=== PATIENT | female | born 1930 | race Caucasian/White ===

== ENCOUNTER 2017-09-02 02:05 | Emergency (ER) | payer MEDICARE, BC ==
[2017-09-02 02:49] LABS: MCH 32.8 pg (25.0-35.0); MCHC 32.5 g/dL (31.0-37.0); Macrocytosis Slight; Neutrophils % (A) 77 %
[2017-09-02 02:52] LABS: Basophils # (A) 0.1 k/uL (0-0.2); Basophils % (A) 0 %; Eosinophils # (A) 0.2 k/uL (0-0.7); Eosinophils % (A) 2 %; HGB 12.3 gm/dL (11.4-16.0); Lymphocytes # (A) 1.9 k/uL (1.0-4.8); Lymphocytes % (A) 15 %; MCV 100.9 fL (80.0-100.0); Mean Platelet Volume 7.2; Monocytes # (A) 0.7 k/uL (0-1.0); Monocytes % (A) 5 %; Neutrophils # (A) 10.2 k/uL (1.3-7.7); RBC 3.77 m/uL (3.80-5.40); RDW 13.9 % (11.5-15.5); WBC 13.3 k/uL (3.8-10.6)
[2017-09-02 02:59] LABS: Calcium 9.2 mg/dL (8.4-10.2); Magnesium 2.1 mg/dL (1.6-2.3); Potassium 4.4 mmol/L (3.5-5.1)
[2017-09-02 03:05] LABS: Platelet Count 99 k/uL (150-450)
[2017-09-02 03:09] LABS: Creatine Kinase 321 U/L (30-135)
[2017-09-02 03:22] LABS: Troponin I <0.012 ng/mL (0.000-0.034)
[2017-09-02 03:25] LABS: Creatine Kinase MB 5.1 ng/mL (0.0-2.4)
--- NOTE | 2017-09-02 03:26 | CT ---
EXAMINATION TYPE: CT facial bones wo con DATE OF EXAM: 09/02/2017 COMPARISON: NONE HISTORY: fall CT DLP: 1964.10 mGycm Automated exposure control for dose reduction was used. TECHNIQUE: CT scan of the sinuses is performed without contrast, axial images are obtained, coronal r eformatted images are also reviewed. FINDINGS: There is extensive soft tissue swelling anterior to the right orbit or there is also extens kirsty soft tissue swelling lateral to the right side of the face. The zygomatic arches are intact. I se e no orbital fracture. There is significant preseptal soft tissue swelling in the right orbital regio n. There is soft tissue swelling on the right side of the nose. Nasal bone appears intact. There is n o evidence of blowout fracture. There is fairly normal aeration of the paranasal sinuses. The maxilla is intact. The mandibular ring appears intact. IMPRESSION: Significant right-sided soft tissue swelling as above. This measures up to 3 cm in thickness and cons istent with subcutaneous hemorrhage. No fracture seen. IMPRESSION: The sinuses are clear and the ostiomeatal complex is patent bilaterally.
--- NOTE | 2017-09-02 03:33 | CT ---
EXAMINATION TYPE: CT brain george farias DATE OF EXAM: 09/02/2017 COMPARISON: NONE HISTORY: fall CT DLP: 1964.10 mGycm Automated exposure control for dose reduction was used. TECHNIQUE: CT scan of the head and cervical spine are performed without contrast. FINDINGS: There is cerebral cortical atrophy. There is no mass effect nor midline shift. There is e xtensive scalp soft tissue swelling on the right side. This measures up to 2.5 cm. There is small intracranial hemorrhage on the left side that measures 27 x 6 mm. This appears to be e pidural on the left lateral temporal bone. There is also extension inferiorly. Hemorrhage measures 4 cm in length in the superior inferior dimension. I see no skull fracture. Cervical vertebra have fairly normal alignment. There is narrowing of disc spaces from C4 to C7 with spurring of the endplates. Facet joints are intact. I see no bony destructive process. The skull base is intact. IMPRESSION: Extensive right-sided soft tissue swelling of the skull and face. Small epidural hemorrhage in the left temporal region. No mass effect. No evidence of parenchymal hem orrhage. Cerebral atrophy. Spondylotic changes in the cervical spine. No fracture. This exam was discussed with ER physician at 3:30 AM.
[2017-09-02] MEDS ORDERED: MORPHINE SULFATE 4 MG/ML SYRINGE IV STA ×2 (03:59→04:48)
--- NOTE | 2017-09-02 03:59 | ED ---
Fall HPI - General Chief Complaint: Fall Stated Complaint: fall Time Seen by Provider: 09/02/17 02:29 Source: patient, EMS Mode of arrival: EMS - History of Present Illness Initial Comments: This patient is an 87-year-old woman who presents to be evaluated after she had a fall this morning. The patient reports she had gotten up to use the bathroom , and then believes that she was moving too quickly. She became dizzy and fell , striking her head on the entry way to the bathroom. Patient does not believe that she lost consciousness, but not sure she was dazed. Now she complains of having headache to the right side of the head. She describes as burning, constant, moderate intensity. 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 ROS Other: All systems not noted in ROS Statement are negative. Constitutional: Denies: fever, chills, weakness Eyes: Denies: vision change ENT: Denies: epistaxis Respiratory: Denies: cough, dyspnea Cardiovascular: Denies: chest pain, palpitations Gastrointestinal: Denies: abdominal pain, vomiting, diarrhea Musculoskeletal: Denies: back pain Neurological: Reports: headache. Denies: weakness, numbness, paresthesias, confusion Hematological/Lymphatic: Denies: easy bleeding Past Medical History Past Medical History: Asthma, COPD, Hypertension, Thyroid Disorder History of Any Multi-Drug Resistant Organisms: None Reported Past Surgical History: Orthopedic Surgery, Tonsillectomy Additional Past Surgical History / Comment(s): aortic anuerysm Past Psychological History: No Psychological Hx Reported Smoking Status: Current every day smoker Past Alcohol Use History: None Reported Past Drug Use History: None Reported General Exam Limitations: no limitations General appearance: alert, in no apparent distress Head exam: Present: normocephalic, other (Patient has ecchymosis to the right parietal scalp, right face, with moderate amount of soft tissue swelling. No obvious bony deformity. There is tenderness) Eye exam: Present: PERRL, EOMI, periorbital swelling (Right-sided), periorbital tenderness. Absent: scleral icterus, conjunctival injection ENT exam: Present: normal oropharynx, mucous membranes moist, TM's normal bilaterally Neck exam: Present: normal inspection, full ROM. Absent: tenderness Respiratory exam: Present: normal lung sounds bilaterally. Absent: respiratory distress, wheezes, rales, rhonchi, stridor, chest wall tenderness Cardiovascular Exam: Present: normal rhythm, bradycardia, normal heart sounds. Absent: systolic murmur, diastolic murmur, rubs, gallop GI/Abdominal exam: Present: soft. Absent: distended, tenderness, guarding, rebound, mass Extremities exam: Present: full ROM, tenderness (Patient is ecchymosis to the anterior aspect of right knee and soft tissue swelling. No obvious deformity), normal capillary refill. Absent: pedal edema, calf tenderness Back exam: Present: normal inspection. Absent: CVA tenderness (R), CVA tenderness (L), vertebral tenderness Neurological exam: Present: alert, oriented X3, CN II-XII intact, other (GCS 15) . Absent: motor sensory deficit Skin exam: Present: warm, dry, intact, other (Ecchymosis to the right face as well as to the right knee.). Absent: rash Course Vital Signs 09/02/17 09/02/17 09/02/17 02:06 02:14 04:19 Temperature 97 F L 98.2 F Pulse Rate 47 L 45 L 50 L Respiratory 20 20 16 Rate Blood Pressure 207/124 175/95 185/74 O2 Sat by Pulse 99 98 98 Oximetry Medical Decision Making - Medical Decision Making Patient is an 87-year-old woman brought for evaluation after a fall at home this morning. She does have a small left-sided epidural hematoma. I discussed with the patient that this does require neurosurgery evaluation, and she would like to be seen at the nearest facility I discussed that this is [facility] and the patient is agreeable to this. She does pass a mental status exam. She declines to have family called at this point. I discussed the case with Dr. Collado, who discussed the case with the neurosurgery team there and will accept transfer - Lab Data Result diagrams: 09/02/17 02:22 09/02/17 02:22 Lab Results 09/02/17 09/02/17 09/02/17 Range/Units 02:22 02:22 02:22 WBC 13.3 H (3.8-10.6) k/uL RBC 3.77 L (3.80-5.40) m/uL Hgb 12.3 (11.4-16.0) gm/dL Hct 38.0 (34.0-46.0) % MCV 100.9 H (80.0-100.0) fL MCH 32.8 (25.0-35.0) pg MCHC 32.5 (31.0-37.0) g/dL RDW 13.9 (11.5-15.5) % Plt Count 99 L (150-450) k/uL Neutrophils % 77 % Lymphocytes % 15 % Monocytes % 5 % Eosinophils % 2 % Basophils % 0 % Neutrophils # 10.2 H (1.3-7.7) k/uL Lymphocytes # 1.9 (1.0-4.8) k/uL Monocytes # 0.7 (0-1.0) k/uL Eosinophils # 0.2 (0-0.7) k/uL Basophils # 0.1 (0-0.2) k/uL Manual Slide Review Performed Macrocytosis Slight PT (9.0-12.0) sec INR (<1.2) APTT (22.0-30.0) sec Sodium 140 (137-145) mmol/L Potassium 4.4 (3.5-5.1) mmol/L Chloride 104 (98-107) mmol/L Carbon Dioxide 25 (22-30) mmol/L Anion Gap 11 mmol/L BUN 28 H (7-17) mg/dL Creatinine 1.00 (0.52-1.04) mg/dL Est GFR (CKD-EPI)AfAm 59 (>60 ml/min/1.73 sqM) Est GFR (CKD-EPI)NonAf 52 (>60 ml/min/1.73 sqM) Glucose 131 H (74-99) mg/dL Plasma Lactic Acid Bandar (0.7-2.0) mmol/L Calcium 9.2 (8.4-10.2) mg/dL Magnesium 2.1 (1.6-2.3) mg/dL Total Bilirubin 0.4 (0.2-1.3) mg/dL AST 33 (14-36) U/L ALT 25 (9-52) U/L Alkaline Phosphatase 72 (38-126) U/L Total Creatine Kinase 321 H (30-135) U/L CK-MB (CK-2) 5.1 H* (0.0-2.4) ng/mL CK-MB (CK-2) Rel Index 1.6 Troponin I <0.012 (0.000-0.034) ng/mL Total Protein 5.9 L (6.3-8.2) g/dL Albumin 3.7 (3.5-5.0) g/dL 09/02/17 09/02/17 Range/Units 02:22 02:22 WBC (3.8-10.6) k/uL RBC (3.80-5.40) m/uL Hgb (11.4-16.0) gm/dL Hct (34.0-46.0) % MCV (80.0-100.0) fL MCH (25.0-35.0) pg MCHC (31.0-37.0) g/dL RDW (11.5-15.5) % Plt Count (150-450) k/uL Neutrophils % % Lymphocytes % % Monocytes % % Eosinophils % % Basophils % % Neutrophils # (1.3-7.7) k/uL Lymphocytes # (1.0-4.8) k/uL Monocytes # (0-1.0) k/uL Eosinophils # (0-0.7) k/uL Basophils # (0-0.2) k/uL Manual Slide Review Macrocytosis PT 10.3 (9.0-12.0) sec INR 1.1 (<1.2) APTT 22.1 (22.0-30.0) sec Sodium (137-145) mmol/L Potassium (3.5-5.1) mmol/L Chloride (98-107) mmol/L Carbon Dioxide (22-30) mmol/L Anion Gap mmol/L BUN (7-17) mg/dL Creatinine (0.52-1.04) mg/dL Est GFR (CKD-EPI)AfAm (>60 ml/min/1.73 sqM) Est GFR (CKD-EPI)NonAf (>60 ml/min/1.73 sqM) Glucose (74-99) mg/dL Plasma Lactic Acid Bandar 0.7 (0.7-2.0) mmol/L Calcium (8.4-10.2) mg/dL Magnesium (1.6-2.3) mg/dL Total Bilirubin (0.2-1.3) mg/dL AST (14-36) U/L ALT (9-52) U/L Alkaline Phosphatase (38-126) U/L Total Creatine Kinase (30-135) U/L CK-MB (CK-2) (0.0-2.4) ng/mL CK-MB (CK-2) Rel Index Troponin I (0.000-0.034) ng/mL Total Protein (6.3-8.2) g/dL Albumin (3.5-5.0) g/dL - EKG Data -: EKG Interpreted by Fl EKG shows normal: sinus rhythm, axis (Normal), intervals (Normal), QRS complexes (Normal), ST-T waves (Normal) Rate: bradycardia (Rate proximal 148 bpm) Interpretation: normal EKG Disposition Clinical Impression: Fall, Epidural hematoma, Contusion of knee, right, Contusion of face Disposition: OTHER INSTITUTION NOT DEFINED Condition: Serious Is patient prescribed a controlled substance at d/c from ED?: No Referrals: Festus Albright MD [Primary Care Provider] - 1-2 days
[2017-09-02 04:06] LABS: Albumin 3.7 g/dL (3.5-5.0); Total Bilirubin 0.4 mg/dL (0.2-1.3); Total Protein 5.9 g/dL (6.3-8.2)
[2017-09-02 04:11] LABS: INR 1.1 (<1.2); Partial Thromboplastin Time 22.1 sec (22.0-30.0); Prothrombin Time 10.3 sec (9.0-12.0)
[2017-09-02 04:20] VITALS: BP 185/74; PULSE 50; RESP 16; TEMP 98.2
[2017-09-02] MEDS ORDERED: ONDANSETRON 4 MG/2 ML VIAL IVP STA (04:23)
--- NOTE | 2017-09-02 04:46 | XR ---
EXAMINATION TYPE: XR knee complete RT DATE OF EXAM: 09/02/2017 COMPARISON: NONE HISTORY: Knee pain TECHNIQUE: 3 views FINDINGS: There is a right knee prosthesis. Components appear in anatomic position. I see no sign of loosening. There is no sign of joint effusion. There is some soft tissue swelling anterior to the pat martha. IMPRESSION: Anterior soft tissue swelling. No fracture.
== END 2017-09-02 04:52 | disposition other institution (70) ==
LOC: EC 02:05
DX: S06.4X0A Epidural hemorrhage without loss of consciousness, initial encounter (principal); S80.01XA Contusion of right knee, initial encounter; S00.03XA Contusion of scalp, initial encounter; S00.83XA Contusion of other part of head, initial encounter; W18.39XA Other fall on same level, initial encounter; Y92.002 Bathroom of unspecified non-institutional (private) residence as the place of occurrence of the external cause
CPT/HCPCS: 99285; 96374; 96375; 96376; 36415; 93005; 80053; 82550; 82553; 83605; 83735; 84484; 85025; 85610; 85730; 73562; 72125; 70486; 70450; J2270; J2405

== ENCOUNTER → 2017-10-01 | Outpatient (CLI) | payer MEDICARE, BC ==
--- NOTE | 2017-10-01 15:28 | CT ---
EXAMINATION TYPE: CT brain wo con DATE OF EXAM: 10/01/2017 COMPARISON: 09/02/[address] 09/03/2017 HISTORY: 87-year-old female, pain, Contusion of head, sequela TECHNIQUE: Examination was done in axial plane without intravenous contrast. Coronal and sagittal r econstructions performed. CT DLP: 945.50 mGycm Automated exposure control for dose reduction was used. FINDINGS: Moderate to large lateral right frontal scalp contusion remains though decreased in size from 09/04/19 18. No underlying calvarial fracture. Tracer fluid level in the left sphenoid sinus. Mastoid air cells well pneumatized. Orbits and globes appear intact. The lateral left frontal focal subdural hematoma has resolved but has transitioned to a now chronic s ubdural hematoma along the left parietal convexity measuring 7 mm thick. Minimal mass effect on to th e underlying cortex. Mild generalized supratentorial volume loss with moderate patchy white matter hypodensities compatibl e with chronic small vessel ischemic disease. No evidence for acute intracranial hemorrhage, acute ischemic change, mass, or hydrocephalus. No effa cement of basal subarachnoid cisterns. IMPRESSION: 1. Residual moderate to large lateral right frontal scalp hematoma, decreased in size from 09/03/2017. 2. 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 3. There is slight mass effect onto the underlying cortex here without midline shift or herniation. 4. Background of moderate chronic small vessel ischemic disease.
== END | disposition home or self-care (01) ==
LOC: RADCTMAIN 13:00
PROVIDERS: ATTEND Neurological Surgery
DX: S00.03XA Contusion of scalp, initial encounter (principal); S06.5X0A Traumatic subdural hemorrhage without loss of consciousness, initial encounter; G93.89 Other specified disorders of brain; I67.82 Cerebral ischemia
CPT/HCPCS: 70450

== ENCOUNTER → 2018-02-14 | Outpatient (CLI) | payer MEDICARE, BC, OTHER ==
--- NOTE | 2018-02-18 09:59 | MM ---
Reason for exam: screening (asymptomatic). Last mammogram was performed 1 year ago. History: Patient is postmenopausal. Family history of breast cancer in sister at age 35, breast cancer in maternal aunt, and breast cancer in 4 maternal cousins. Physical Findings: A clinical breast exam by your physician is recommended on an annual basis and results should be correlated with mammographic findings. MG 3D Screening Mammo W/Cad Bilateral CC and MLO view(s) were taken. Prior study comparison: February 07, 2017, bilateral MG 3d screening mammo w/cad. January 10, 2016, bilateral MG screening mammo w CAD. Finding: There are typically benign vascular, diffuse/scattered calcifications in both breasts. No significant changes in finding since February 07, 2017 and January 10, 2016. ASSESSMENT: Benign, BI-RAD 2 RECOMMENDATION: Routine screening mammogram of both breasts in 1 year.
== END | disposition home or self-care (01) ==
LOC: RADMAMWWP 11:05
PROVIDERS: ATTEND Family Medicine
DX: Z12.31 Encounter for screening mammogram for malignant neoplasm of breast (principal)
CPT/HCPCS: 77063; 77067